=== PATIENT | female | born 1960 | race Caucasian/White ===

== ENCOUNTER 2017-11-27 23:42 | Emergency (ER) | payer MEDICAID, OTHER ==
[~2017-11-27] VITALS: Ht 157.5 cm; Wt 86.2 kg
[~2017-11-27 23:42] MED LIST: ESTR1TAB19 PO; GABA-532 PO; LISI-600 PO; MELO-100 PO
[2017-11-28] MEDS ORDERED: albuterol 2.5 MG/3 ML nebule NEB ONE (00:10)
[2017-11-28] MEDS ORDERED: methylPREDNISolone sod succ 125mg/2ml vial IV ONE (00:10)
[2017-11-28] MEDS ORDERED: azithromycin/NS 500mg/250ml 250 ML IV ONE (00:10)
[2017-11-28 00:29] LABS: BASOPHILS % (AUTO) 0.3 % (0-1); EOSINOPHILS # (AUTO) 0.4 X10'3 (0-0.9); EOSINOPHILS % (AUTO) 3.3 % (0-6); HEMATOCRIT 44.9 % (35.0-45.0); LYMPHOCYTES # (AUTO) 1.9 X10'3 (1.1-4.8); MEAN CORPUSCULAR HEMOGLOBIN 30.5 PG (27.0-31.0); MEAN CORPUSCULAR HGB CONC 33.5 % (33.0-36.5); MEAN CORPUSCULAR VOLUME 91.1 FL (78-98); MEAN PLATELET VOLUME 8.2 FL (7.4-10.4); MONOCYTES # (AUTO) 0.6 X10'3 (0-0.9); MONOCYTES % (AUTO) 4.6 % (2-12); NEUTROPHILS # (AUTO) 9.2 X10'3 (1.8-7.7); NEUTROPHILS % (AUTO) 75.8 % (42-75); PLATELET COUNT 291 X10'3 (140-440); RED BLOOD COUNT 4.93 X10'6 (4.20-5.60); RED CELL DISTRIBUTION WIDTH 13.1 % (11.5-14.5); WHITE BLOOD COUNT 12.1 X10'3 (4.5-11.0)
[2017-11-28] MEDS ORDERED: albuterol 2.5 MG/3 ML nebule CONTNEB ONE (00:45)
[2017-11-28 00:51] LABS: ALANINE AMINOTRANSFERASE 81 U/L (12-78); ALBUMIN 3.8 G/DL (3.4-5.0); ALKALINE PHOSPHATASE 95 IU/L (46-116); ANION GAP 8 (8-16); ASPARTATE AMINO TRANSFERASE 43 U/L (10-37); BILIRUBIN,TOTAL 0.4 MG/DL (0.1-1.0); BLOOD UREA NITROGEN 18 MG/DL (7-18); CALCIUM 8.8 MG/DL (8.5-10.1); CHLORIDE 105 MMOL/L (99-107); GLUCOSE 128 MG/DL (70-104); POTASSIUM 3.7 MMOL/L (3.5-5.1); SODIUM 142 MMOL/L (135-145); TOTAL CARBON DIOXIDE 29.1 MMOL/L (24-32); TOTAL PROTEIN 7.8 G/DL (6.4-8.2); eGFR 64 ML/MIN
[2017-11-28] MEDS ORDERED: ALBU8HFA PO (02:22)
[2017-11-28] MEDS ORDERED: PRED20TA PO (02:22)
[2017-11-28] MEDS ORDERED: AZI25OT PO (02:22)
[2017-11-28 02:42] VITALS: BP 150/60
== END 2017-11-28 02:44 | disposition home or self-care (01) ==
LOC: ER 23:43
DX: J18.9 Pneumonia, unspecified organism (principal); I10 Essential (primary) hypertension; Z79.899 Other long term (current) drug therapy; Z87.891 Personal history of nicotine dependence
CPT/HCPCS: 36415; 71046; 80053; 83735; 83880; 85025; 94640; 94644; 94760; 96365; 96375; 99285; J0456; J2930